=== PATIENT | male | born 1940 | race Caucasian/White ===

== ENCOUNTER 2018-05-19 10:46 | Day surgery (SDC) | payer OTHER ==
[~2018-05-19 10:46] MED LIST: ALEVE220 M1 PO; CEFADROXIL500 MG PO; GLEEVEC100 MG; LOSARTAN POTASS25 MG; PERCOCET 5/3251 TAB PO; TAMS0.4C
== END 2018-05-19 15:15 | disposition home or self-care (01) ==
LOC: AMB-ENDOS 10:46
DX: D12.2 Benign neoplasm of ascending colon (principal); K57.30 Diverticulosis of large intestine without perforation or abscess without bleeding; K64.8 Other hemorrhoids